=== PATIENT | male | born 1955 | race Caucasian/White ===

== ENCOUNTER 2024-04-13 07:00 | Outpatient (RCR) | payer MEDICARE, OTHER | END 2024-04-15 | LOC: PT 07:00 | PROVIDERS: ATTEND Specialist | DX: S43.422A Sprain of left rotator cuff capsule, initial encounter (principal) ==

== ENCOUNTER 2024-05-08 07:00 | Outpatient (RCR) | payer MEDICARE, OTHER | END 2024-05-16 | LOC: PT 07:00 | PROVIDERS: ATTEND Specialist | DX: M75.102 Unspecified rotator cuff tear or rupture of left shoulder, not specified as traumatic (principal); M62.81 Muscle weakness (generalized); M25.512 Pain in left shoulder ==

== ENCOUNTER 2024-06-05 07:00 | Outpatient (RCR) | payer MEDICARE, OTHER | END 2024-06-16 | LOC: PT 07:00 | PROVIDERS: ATTEND Specialist | DX: M75.102 Unspecified rotator cuff tear or rupture of left shoulder, not specified as traumatic (principal); M62.81 Muscle weakness (generalized); M25.512 Pain in left shoulder ==